=== PATIENT | male | born 1960 | race Caucasian/White ===

== ENCOUNTER 2021-11-18 21:15 | Emergency (ER) | payer OTHER ==
[~2021-11-18] VITALS: Ht 172.7 cm; Wt 108.9 kg
[2021-11-18 21:15] VITALS: BP_SYST 162
--- NOTE | 2021-11-18 21:15 | NUR ---
Patient to ER bed 01 to gown for evaluation. Side rails up. Report given to HERMES WOODY
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
--- NOTE | 2021-11-18 21:20 | NUR ---
ER at bedside examining patient.
[2021-11-18] MEDS ORDERED: LIDOCAINE 1%, 20 ML MDV 20 ML ONE (21:31)
[2021-11-18] MEDS: LIDOCAINE 1% 10 MG/ML, 20 ML MDV INJ ONE (21:31)
--- NOTE | 2021-11-18 21:31 | NUR ---
Patient has a 1.5 cm laceration to LT. VICKIE GOMEZ applied sutures using sterile technique. Edges well approximated. Site cleansed with NORMAL SALINE AND BETADINE. Dressing of NON ADHERENT GAUZE AND ROLLED GAUCEapplied to site. No bleeding noted. Pt tolerated well.
[2021-11-18 21:58] VITALS: BP_SYST 132
--- NOTE | 2021-11-18 21:58 | NUR ---
Patient given written and verbal discharge instructions and verbalizes understanding. ER MD discussed with patient the results and treatment provided. Patient in stable condition. ID arm band removed. . Patient educated on pain management and to follow up with PMD. Pain Scale . Opportunity for questions provided and answered. Medication side effect fact sheet provided.
[2021-11-18] MEDS: BACITRACIN 1 GM OINT TP ONE (22:00)
== END 2021-11-18 21:58 | disposition home or self-care (01) ==
LOC: SED 21:15
DX: S61.012A Laceration without foreign body of left thumb without damage to nail, initial encounter (principal); W26.0XXA Contact with knife, initial encounter; Y93.89 Activity, other specified; Y92.89 Other specified places as the place of occurrence of the external cause; Y99.8 Other external cause status
CPT/HCPCS: 12002; 99282; J2001

== ENCOUNTER 2021-11-25 14:01 | Emergency (ER) | payer OTHER ==
[~2021-11-25] VITALS: Ht 175.3 cm; Wt 108.9 kg
[2021-11-25 14:12] VITALS: BP_SYST 157
[2021-11-25 14:19] VITALS: BP_SYST 148
== END 2021-11-25 14:20 | disposition home or self-care (01) ==
LOC: SED 14:01
DX: S61.412D Laceration without foreign body of left hand, subsequent encounter (principal); Z48.02 Encounter for removal of sutures; W45.8XXD Other foreign body or object entering through skin, subsequent encounter
CPT/HCPCS: 99281